=== PATIENT | male | born 1985 | race American Indian/Alaskan Native ===

== ENCOUNTER 2021-04-12 00:40 | Emergency (ER) | payer OTHER ==
[2021-04-12 00:52] VITALS: BP 131/83
[2021-04-12 02:35] LABS: Hematocrit 48.6 % (35.5-45.6); Hemoglobin 15.6 gm/dl (11.8-15.2); Mean Corpuscular HGB Conc 32 % (32-34); Mean Corpuscular Volume 84 fl (84-94); Platelet Count 251 K/mm3 (140-440); Red Blood Count 5.78 M/mm3 (3.65-5.03); Red Cell Distribution Width 13.3 % (13.2-15.2)
--- NOTE | 2021-04-12 02:42 | XRay Report ---
CHEST 2 VIEWS INDICATION / CLINICAL INFORMATION: Dyspnea. COMPARISON: None available. FINDINGS: SUPPORT DEVICES: None. HEART / MEDIASTINUM: No significant abnormality. LUNGS / PLEURA: No significant pulmonary abnormality. No significant pleural effusion. No pneumothora x. ADDITIONAL FINDINGS: No significant additional findings. IMPRESSION: 1. No acute abnormality of the chest. Signer Name: Jozef Antunez MD Signed: 04/12/2021 2:38 AM Workstation Name: [id number]
[2021-04-12] MEDS ORDERED: HYDROcodone/ACETAMINOPHEN 5-325 MG TAB PO ONE (03:00)
[2021-04-12] MEDS ORDERED: ONDANSETRON 4 MG ODT TAB PO ONE (03:00)
[2021-04-12] MEDS ORDERED: IPRATROPIUM/ALBUTEROL SULFATE 3 ML AMPUL.NEB IH ONE (03:03)
[2021-04-12 03:13] LABS: Alanine Aminotransferase 34 units/L (7-56); Albumin 4.4 g/dL (3.9-5); BUN/Creatinine Ratio 14; Blood Urea Nitrogen 11 mg/dL (9-20); Calcium 9.4 mg/dL (8.4-10.2); Hemolysis Index 5
[2021-04-12 04:31] LABS: Total Cells Counted 100
[2021-04-12 04:32] LABS: Anisocytosis 1+; Platelet Estimate Consistent w Auto
--- NOTE | 2021-04-12 05:29 | Emergency Department Report ---
ED General Adult HPI - General Chief complaint: Dyspnea/Respdistress Stated complaint: SOB Time Seen by Provider: 04/12/21 03:21 Source: patient Mode of arrival: Ambulatory Limitations: No Limitations - History of Present Illness Initial comments: 35-year-old -[place]ish male relatively healthy presents emerged department complaining of chest congestion cough with coryza and muscle aches type chest pain after discovering he had Covid today with a home Covid test. He reports no hemoptysis no hematemesis hematochezia but has had some scant mucus production cough. Reports no diarrhea constipation has had some nausea -: Sudden Location: chest, abdomen Radiation: non-radiation Severity scale (0 -10): 9 Quality: dull Consistency: constant Improves with: none Worsens with: none Associated Symptoms: denies other symptoms, cough, fever/chills, headaches, malaise. denies: rash, seizure, syncope Treatments Prior to Arrival: none - Related Data Previous Rx's Medication Instructions Recorded Last Taken Type Albuterol Mdi (or & Nicu Only) 1 puff IH Q4-6H PRN #1 inha 04/12/21 Unknown Rx [ProAir HFA Inhaler] Benzonatate [Tessalon Perles] 100 mg PO Q8HR #20 capsule 04/12/21 Unknown Rx predniSONE [Deltasone] 20 mg PO QDAY #5 tab 04/12/21 Unknown Rx Allergies Allergy/AdvReac Type Severity Reaction Status Date / Time No Known Allergies Allergy Unverified 04/12/21 01:01 ED Review of Systems ROS: Stated complaint: SOB Other details as noted in HPI Comment: All other systems reviewed and negative ED Past Medical Hx - Past Medical History Previous Medical History?: No - Surgical History Past Surgical History?: No - Medications Home Medications: Home Medications Medication Instructions Recorded Confirmed Last Taken Type Albuterol Mdi (or & Nicu Only) 1 puff IH Q4-6H PRN #1 inha 04/12/21 Unknown Rx [ProAir HFA Inhaler] Benzonatate [Tessalon Perles] 100 mg PO Q8HR #20 capsule 04/12/21 Unknown Rx predniSONE [Deltasone] 20 mg PO QDAY #5 tab 04/12/21 Unknown Rx ED Physical Exam - General Limitations: No Limitations General appearance: alert, in no apparent distress - Head Head exam: Present: atraumatic, normocephalic - Eye Eye exam: Present: normal appearance, PERRL Pupils: Present: normal accommodation - ENT ENT exam: Present: normal exam, mucous membranes moist - Neck Neck exam: Present: normal inspection - Respiratory Respiratory exam: Present: normal lung sounds bilaterally, rhonchi. Absent: respiratory distress, wheezes, rales, accessory muscle use, decreased breath sounds - Cardiovascular Cardiovascular Exam: Present: regular rate, normal rhythm. Absent: systolic murmur, diastolic murmur, rubs, gallop - GI/Abdominal GI/Abdominal exam: Present: soft, normal bowel sounds - Rectal Rectal exam: Present: deferred - Extremities Exam Extremities exam: Present: normal inspection - Back Exam Back exam: Present: normal inspection - Neurological Exam Neurological exam: Present: alert, oriented X3 - Psychiatric Psychiatric exam: Present: normal affect, normal mood - Skin Skin exam: Present: warm, dry, intact, normal color. Absent: rash ED Course Vital Signs 04/12/21 04/12/21 00:45 03:18 Temperature 99.1 F Pulse Rate 84 Pulse Rate [ 75 Anterior] Respiratory 15 Rate Respiratory 16 Rate [Anterior] Blood Pressure 131/83 [Left] O2 Sat by Pulse 100 Oximetry ED Medical Decision Making - Lab Data Result diagrams: 04/12/21 01:51 04/12/21 01:51 - Radiology Data Radiology results: report reviewed [address] [address] XRay Report Signed Patient: SANDRA HUTCHINSON MR#: [id number] [birth year] : 1985 Acct:[id number] Age/Sex: 35 / M ADM Date: 04/12/21 Loc: ED Attending Dr: Ordering Physician: ED MD CLARISA Date of Service: 04/12/21 Procedure(s): XR chest routine 2V Accession Number(s): [id number] cc: ED MD CLARISA Fluoro Time In Minutes: CHEST 2 VIEWS INDICATION / CLINICAL INFORMATION: Dyspnea. COMPARISON: None available. FINDINGS: SUPPORT DEVICES: None. HEART / MEDIASTINUM: No significant abnormality. LUNGS / PLEURA: No significant pulmonary abnormality. No significant pleural effusion. No pneumothorax. ADDITIONAL FINDINGS: No significant additional findings. IMPRESSION: 1. No acute abnormality of the chest. Signer Name: Jozef Antunez MD Signed: 04/12/2021 2:38 AM Workstation Name: [id number] Transcribed By: [place] Dictated By: Jozef Antunez MD Electronically Authenticated By: Jozef Antunez MD Signed Date/Time: 04/12/21237 DD/ 7 TD/TT: - Medical Decision Making This patient presents with acute cough, most consistent with bronchitis/nonemergent cause. Differential diagnosis includes COVID-19, pneumonia, bronchitis, hyperreactive airway disease, GERD. Presentation not consistent with acute bacterial pneumonia, influenza, asthma, transient airway hyperresponsiveness. Presentation not consistent with chronic causes of cough (including GERD, asthma, postnasal discharge, medication side effect, CHF, lung cancer or mass). Plan: Normal CXR, supportive care, reassess Critical care attestation.: If time is entered above; I have spent that time in minutes in the direct care of this critically ill patient, excluding procedure time. ED Disposition Clinical Impression: Cough with exposure to COVID-19 virus Disposition: 01 HOME / SELF CARE / HOMELESS Is pt being admited?: No Does the pt Need Aspirin: No Condition: Stable Instructions: Cough, Adult, Cool Mist Vaporizer, COVID-19 Frequently Asked Questions, COVID-19, COVID-19: How to Protect Yourself and Others - CDC Prescriptions: predniSONE [Deltasone] 20 mg PO QDAY #5 tab Albuterol Mdi (or & Nicu Only) [ProAir HFA Inhaler] 1 puff IH Q4-6H PRN #1 inha PRN Reason: Cough Benzonatate [Tessalon Perles] 100 mg PO Q8HR #20 capsule Referrals: PRIMARY MD CHARLIE [Primary Care Provider] - 3-5 Days GOKUL FLORES MD [Staff Physician] - 3-5 Days
--- NOTE | 2021-04-12 12:04 | Electrocardiograph Report ---
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
== END 2021-04-12 05:40 | disposition home or self-care (01) ==
LOC: ED 00:40
DX: R05.9 Cough, unspecified (principal); B97.29 Other coronavirus as the cause of diseases classified elsewhere
CPT/HCPCS: 36415; 71046; 80053; 84484; 85007; 85025; 93005; 94640; 94644; 99284; J3490; Q0162